=== PATIENT | female | born 1975 ===

== ENCOUNTER 2021-06-08 21:59 | Emergency (ER) | payer SELFPAY ==
[2021-06-09] MEDS ORDERED: IBUPROFEN 600 MG TAB PO ONE (03:09)
[2021-06-09] MEDS ORDERED: HYDROcodone/ACETAMINOPHEN 7.5-325MG TAB PO ONE (03:09)
[2021-06-09] MEDS ORDERED: ONDANSETRON 4 MG ODT TAB PO ONE (03:09)
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
[2021-06-09 05:04] VITALS: BP 146/80
== END 2021-06-09 05:03 | disposition home or self-care (01) ==
LOC: ED 21:59
DX: S13.9XXA Sprain of joints and ligaments of unspecified parts of neck, initial encounter (principal); S43.402A Unspecified sprain of left shoulder joint, initial encounter; S29.012A Strain of muscle and tendon of back wall of thorax, initial encounter; M62.830 Muscle spasm of back; E11.9 Type 2 diabetes mellitus without complications; Z87.891 Personal history of nicotine dependence; Z79.899 Other long term (current) drug therapy; V89.2XXA Person injured in unspecified motor-vehicle accident, traffic, initial encounter; Y93.89 Activity, other specified; Y92.488 Other paved roadways as the place of occurrence of the external cause; Y99.8 Other external cause status
CPT/HCPCS: 72070; 72125; 99283